=== PATIENT | female | born 1995 | race African-American/Black ===

== ENCOUNTER 2018-03-26 15:20 | Emergency (ER) | payer MEDICAID ==
[~2018-03-26] VITALS: Ht 165.1 cm; Wt 104.3 kg
[2018-03-26] MEDS ORDERED: NKM (15:33)
[2018-03-26] MEDS ORDERED: Acetaminophen 500mg (ES) tab ORAL ONE (15:45)
--- NOTE | 2018-03-26 15:48 | Emergency Room Report ---
History of Present Illness General Chief Complaint: Lower Extremity Injury Source: Patient (Shabbir Rodgers) Present Illness HPI 22-year-old female patient presents ER complaining of right lower extremity pain status post trip and fall injury times one day. Reports that she was at the park yesterday when she twisted her ankle and it "pulled back". reports pain in her ankle and foot. Also states that she hit her anterior rajput which is painful. Denies bleeding or open wounds. Reports pain with ambulation. Reports that she took one Tylenol yesterday for pain, states has not taken any medication today. denies hitting head or loss consciousness. Denies vision changes. Denies fever, chest pain, shortness of breath. denies upper extremity or wrist pain. (Shabbir Rodgers) Allergies: Coded Allergies: No Known Allergies (Unverified , 03/26/18) Patient History Past Medical History: see triage record Last Menstrual Period: 03/08/2018 Now: No Reviewed Nursing Documentation: PMH: Agreed; PSxH: Agreed (Shabbir Rodgers) Nursing Documentation-PMH Past Medical History: No History, Except For Hx Asthma: Yes (Shabbir Rodgers) Review of Systems All Other Systems: negative except mentioned in HPI (Shabbir Rodgers) Physical Exam Vital Signs Date Time Temp Pulse Resp B/P (MAP) Pulse Ox O2 Delivery O2 Flow Rate FiO2 03/26/18 15:29 98.1 71 14 104/65 99 Room Air 98.1 Sp02 EP Interpretation: reviewed, normal General Appearance: well appearing, no apparent distress, alert, GCS 15, non- toxic Head: normocephalic, atraumatic Eyes: bilateral eye normal inspection, bilateral eye PERRL ENT: hearing grossly normal, normal pharynx, no angioedema, normal voice, uvula midline, moist mucus membranes Neck: full range of motion Respiratory: lungs clear, normal breath sounds, no rhonchi, no respiratory distress, no accessory muscle use, no wheezing, speaking full sentences Cardiovascular #1: regular rate, rhythm, no edema Cardiovascular #2: 2+ dorsalis pedis (R), 2+ dorsalis pedis (L) Musculoskeletal: back normal, digits/nails normal, gait/station normal, normal range of motion, swelling - mild swelling at anterior ankle and dorsum of the midfoot, no ecchymosis no erythema, other - NVI, sensation intact to light touch , negative syndemostic squeeze test, tender - anterior ankle, base of fifth metatarsal, distal anterior rajput Neurologic: alert, oriented x3, responsive, motor strength/tone normal, sensory intact Psychiatric: mood/affect normal Skin: no rash (Shabbir Rodgers) Medical Decision Making PA Attestation Dr. Mccoy is my supervising Physician whom patient management has been discussed with. (Shabbir Rodgers) Diagnostic Impression: Primary Impression: Ankle sprain Additional Impressions: Contusion of tibia Foot sprain ER Course Pt. presents to the ED c/o pain in right foot, ankle, rajput status post trip and fall injury yesterday. Ddx considered but are not limited to fracture, sprain, strain, contusion, dislocation. No erythema, no warmth to touch, no fever, nontoxic appearing, low suspicion for septic joint. Vital signs: are WNL, pt. is afebrile Ordered X-ray and pain medication. ER COURSE Provided with pain medication. Patient requesting x-rays of tib/fib, no obvious deformity, no bleeding or ecchymosis, no swelling or erythema, low suspicion for fracture, will order xray. An X-ray of the right foot shows no acute fracture per the preliminary reading. An X-ray of the right ankle shows no acute fracture per the preliminary reading. An X-ray of the right tib-fib shows no acute fracture per the preliminary reading. Likely sprain foot and ankle contusion and tibia causing pain symptoms. LISA wrap was applied to the right ankle and foot and was checked afterwards by me showing good alignment and support with distal neurovascular functioning intact. patient declined crutches, states that she has some crutches in the car that she can use. Patient instructed on RICE method: rest, ice, compression, elevation. Patient instructed on rest, ice and heat. Patient instructed to be WBAT Contact information for orthopedic urgent care provided, follow-up with urgent care if unable to followup with primary care provider and get referral to it security specialist. Followup with primary care provider. Discuss referral to ortho/pain management/ PT as needed. Discuss further imaging with MRI/CT as needed. DISCHARGE: -Rx provided for Tylenol for pain symptoms. At this time pt. is stable for d/c to home. Patient is resting comfortably, in no acute distress, nontoxic appearing, talking without difficulty. Will provide printed patient care instructions, and any necessary prescriptions. Patient instructed to follow with primary care provider in 3 - 5 days and to request further follow-up as needed. Care plan and follow up instructions have been discussed with the patient prior to discharge. Take medications as directed. Patient questions asked and answered. Patient reports understanding and agreement to treatment plan. ER precautions given, patient instructed to return to ER immediately for any new or worsening of symptoms. - Please note that this Emergency Department Report was dictated using [email or web address] attendant technology software, occasionally this can lead to erroneous entry secondary to interpretation by the dictation equipment. (Shabbir Rodgers P.A.) Other X-Ray Diagnostic Results Other X-Ray Diagnostic Results #1: X-Ray ordered: right ankle # of Views/Limited Vs Complete: 3 View Indication: Pain EP Interpretation: Yes PA Xray: Interpretation reviewed, by supervising MD, and agrees with findings. Interpretation: no dislocation, no soft tissue swelling, no fractures Impression: No acute disease PA Scribe Text Jaquan Rodgers PA-C Other X-Ray Diagnostic Results #2: X-Ray ordered: right foot # of Views/Limited Vs Complete: 3 View Indication: Pain EP Interpretation: Yes PA Xray: Interpretation reviewed, by supervising MD, and agrees with findings. Interpretation: no dislocation, no soft tissue swelling, no fractures Impression: No acute disease PA Scribe Text Jaquan Rodgers PA-C Other X-Ray Diagnostic Results #3: X-Ray ordered: right tib-fib # of Views/Limited Vs Complete: 3 View Indication: Pain EP Interpretation: Yes PA Xray: Interpretation reviewed, by supervising MD, and agrees with findings. Interpretation: no dislocation, no soft tissue swelling, no fractures Impression: No acute disease PA Scribe Text Jaquan Ana Maria PA-C (Shabbir Rodgers P.A.) Other X-Ray Diagnostic Results #1: Electronically Signed by: Scribe documentation reviewed by me and is accurate, Shorty Mccoy MD. Other X-Ray Diagnostic Results #2: Electronically Signed by: Scribe documentation reviewed by me and is accurate, Shorty Mccoy MD. Other X-Ray Diagnostic Results #3: Electronically Signed by: Scribe documentation reviewed by me and is accurate, Shorty Mccoy MD. (Shorty Mccoy M.D.) Last Vital Signs Date Time Temp Pulse Resp B/P (MAP) Pulse Ox O2 Delivery O2 Flow Rate FiO2 03/26/18 15:29 98.1 71 14 104/65 99 Room Air 98.1 (Shabbir Rodgers) Disposition: HOME, SELF-CARE Condition: Stable Scripts Acetaminophen* (TYLENOL EXTRA STRENGTH*) 500 Mg Tablet 500 MG ORAL Q8H PRN for Prn Headache/Temp > 101, #30 TAB 0 Refills Prov: Shabbir Rodgers 03/26/18 Patient Instructions: Ankle Sprain, Foot Sprain Additional Instructions: Patient instructed to follow up with primary care provider and discuss further referral to orthopedics/physical therapy/pain management as needed. If unable to followup with PCP, followup with orthopedic urgent care in 5-7 days , call to schedule appointment. Patient instructed on RICE method: rest, ice, compression, elevation. Patient instructed to WBAT. Take medications as directed. Patient questions asked and answered. ER precautions given, patient instructed to return to ER immediately for any new or worsening of symptoms. [facility] [address] [address] [facility] [place], [address] [email or web address] Shabbir Rodgers Mar 26, 2018 15:48 Shorty Mccoy M.D. Mar 29, 2018 17:05
[2018-03-26] MEDS ORDERED: TYLENOL EXTRA500 MG ORAL (16:20)
[2018-03-26 16:53] VITALS: BP 115/72
--- NOTE | 2018-03-27 13:10 | Diagnostic Imaging Report ---
Indication: Pain Technique: XRAY Foot Complete R Comparison: None Findings: Bone mineralization within normal limits. There is no acute fracture or dislocation. Anatomic alignment and joint spaces appear maintained. No radiopaque foreign body identified. Impression: No evidence of acute fracture or dislocation.
--- NOTE | 2018-03-27 13:11 | Diagnostic Imaging Report ---
Indication: Pain status post fall Technique: XRAY Ankle Compl Min 3v R Comparison: None Findings: Bone mineralization within normal limits. There is very mild soft tissue swelling about the lateral malleolus. There is no evidence of acute fracture. Ankle mortise is intact on these nonstress views. No radiopaque foreign body identified. Impression: Mild soft tissue swelling about the lateral malleolus. No evidence of acute fracture. Ankle mortise intact.
--- NOTE | 2018-03-27 13:13 | Diagnostic Imaging Report ---
Indication: Leg pain status post injury Technique: XRAY Leg Lower Tib Fib 2v R Comparison: None Findings: Bony mineralization within normal limits. There is no evidence of acute fracture or dislocation. Partially imaged knee and ankle joints appear maintained. No radiopaque foreign body identified. Impression: No evidence of acute fracture or dislocation.
== END 2018-03-26 16:45 | disposition home or self-care (01) ==
LOC: EMR 15:45
DX: S93.401A Sprain of unspecified ligament of right ankle, initial encounter (principal); S93.601A Unspecified sprain of right foot, initial encounter; S80.11XA Contusion of right lower leg, initial encounter; W01.0XXA Fall on same level from slipping, tripping and stumbling without subsequent striking against object, initial encounter; Y92.830 Public park as the place of occurrence of the external cause
CPT/HCPCS: 99284